=== PATIENT | female | born 1955 | race Two or more races ===

== ENCOUNTER 2018-09-10 09:01 | Outpatient (CLI) | payer OTHER | END 2018-09-10 09:03 | disposition home or self-care (01) | LOC: MAMO-SONO 09:01 | DX: N60.11 Diffuse cystic mastopathy of right breast (principal); N60.12 Diffuse cystic mastopathy of left breast; Z12.31 Encounter for screening mammogram for malignant neoplasm of breast ==

== ENCOUNTER 2018-09-10 10:49 | Outpatient (CLI) | payer OTHER | END 2018-09-10 11:00 | disposition home or self-care (01) | LOC: NUCLEAR 10:49 | DX: M81.0 Age-related osteoporosis without current pathological fracture (principal) ==

== ENCOUNTER 2019-10-14 10:26 | Outpatient (CLI) | payer OTHER | END 2019-10-14 10:28 | disposition home or self-care (01) | LOC: MAMO-SONO 10:26 | DX: Z12.31 Encounter for screening mammogram for malignant neoplasm of breast (principal); Z87.898 Personal history of other specified conditions; N60.11 Diffuse cystic mastopathy of right breast; N60.12 Diffuse cystic mastopathy of left breast ==

== ENCOUNTER 2020-10-18 09:52 | Outpatient (CLI) | payer OTHER | END 2020-10-18 10:07 | disposition home or self-care (01) | LOC: MAMO-SONO 09:52 | PROVIDERS: ATTEND Specialist | DX: Z12.31 Encounter for screening mammogram for malignant neoplasm of breast (principal); N60.11 Diffuse cystic mastopathy of right breast; N60.12 Diffuse cystic mastopathy of left breast ==

== ENCOUNTER 2020-11-08 08:22 | Outpatient (CLI) | payer OTHER | END 2020-11-08 08:35 | disposition home or self-care (01) | LOC: MRI 08:22 | PROVIDERS: ATTEND Specialist | DX: N95.0 Postmenopausal bleeding (principal) | CPT/HCPCS: 72197 ==

== ENCOUNTER 2020-11-17 10:09 | Outpatient (CLI) | payer OTHER | END 2020-11-17 10:10 | disposition home or self-care (01) | LOC: NUCLEAR 10:09 | DX: M81.0 Age-related osteoporosis without current pathological fracture (principal) ==

== ENCOUNTER 2021-11-15 14:05 | Outpatient (CLI) | payer OTHER | END 2021-11-15 14:09 | disposition home or self-care (01) | LOC: MAMO-SONO 14:05 | PROVIDERS: ATTEND Specialist | DX: N60.11 Diffuse cystic mastopathy of right breast (principal); N60.12 Diffuse cystic mastopathy of left breast ==

== ENCOUNTER 2022-07-26 14:29 | Outpatient (CLI) | payer OTHER | END 2022-07-26 14:34 | disposition home or self-care (01) | LOC: RAD 14:29 | DX: I70.0 Atherosclerosis of aorta (principal) ==

== ENCOUNTER → 2022-09-11 13:49 | Outpatient (CLI) | payer OTHER | END | disposition home or self-care (01) | LOC: LAB 13:49 → EKG 13:49 | PROVIDERS: ATTEND Ophthalmology | DX: I10 Essential (primary) hypertension (principal); I11.9 Hypertensive heart disease without heart failure ==

== ENCOUNTER 2022-11-27 10:43 | Outpatient (CLI) | payer OTHER | END 2022-11-27 10:46 | disposition home or self-care (01) | LOC: MAMO-SONO 10:43 | DX: Z12.31 Encounter for screening mammogram for malignant neoplasm of breast (principal); N64.9 Disorder of breast, unspecified ==

== ENCOUNTER 2022-11-27 11:26 | Outpatient (CLI) | payer OTHER | END 2022-11-27 11:32 | disposition home or self-care (01) | LOC: NUCLEAR 11:26 | DX: M81.0 Age-related osteoporosis without current pathological fracture (principal) ==

== ENCOUNTER 2022-12-18 10:03 | Outpatient (CLI) | payer OTHER | END 2022-12-18 10:17 | disposition home or self-care (01) | LOC: MRI 10:03 | DX: M54.16 Radiculopathy, lumbar region (principal) | CPT/HCPCS: 72148 ==

== ENCOUNTER 2023-12-17 14:10 | Outpatient (CLI) | payer OTHER | END 2023-12-17 14:13 | disposition home or self-care (01) | LOC: RAD 14:10 | PROVIDERS: ATTEND Surgery Plastic and Reconstructive Surgery | DX: Z01.811 Encounter for preprocedural respiratory examination (principal) ==

== ENCOUNTER 2023-12-19 10:01 | Outpatient (CLI) | payer OTHER | END 2023-12-19 10:04 | disposition home or self-care (01) | LOC: MAMO-SONO 10:01 | PROVIDERS: ATTEND Specialist | DX: N60.11 Diffuse cystic mastopathy of right breast (principal); N60.12 Diffuse cystic mastopathy of left breast; Z12.31 Encounter for screening mammogram for malignant neoplasm of breast ==

== ENCOUNTER 2024-12-22 08:09 | Outpatient (CLI) | payer OTHER | END 2024-12-22 08:21 | disposition home or self-care (01) | LOC: MAMO-SONO 08:09 | PROVIDERS: ATTEND Specialist | DX: N60.11 Diffuse cystic mastopathy of right breast (principal); N60.12 Diffuse cystic mastopathy of left breast; Z12.31 Encounter for screening mammogram for malignant neoplasm of breast ==